=== PATIENT | male | born 1945 | race Caucasian/White ===

== ENCOUNTER 2021-11-29 11:21 | Observation (INO) ==
[2021-11-29 11:46] LABS: ABS Eosinophils 0.1 10^3/ul (0-0.6); ABS Lymphocytes 0.3 10^3/ul (1.0-4.8); ABS Monocytes 0.4 10^3/ul (0-0.8); ABS Neutrophils 3.6 10^3/ul (1.5-7.7); Eosinophil % 2.7 %; Hematocrit 35 % (42-52); Hemoglobin 11.1 g/dL (14.0-18.0); Lymphocyte % 6.8 %; Mean Corpuscular HGB Conc 32 g/dL (31-36); Mean Corpuscular Hemoglobin 32 pg (27-31); Mean Corpuscular Volume 98 fL (80-94); Mean Platelet Volume 8.6 fL (7.4-10.4); Platelet Count 132 10^3/uL (150-450); Red Blood Count 3.51 10^6 /uL (4.18-5.48); Red Cell Distribution Width 16 % (10-15); White Blood Count 4.5 10^3/uL (3.5-10.8)
[2021-11-29 12:08] LABS: High Sens Troponin Baseline 11 pg/mL (<20)
[2021-11-29 12:25] LABS: ALT 18 U/L (7-52); AST 30 U/L (13-39); Albumin/Globulin Ratio 0.8 (1-3); Alcohol, S < 13 mg/dL (<13); Alkaline Phosphatase 108 U/L (35-149); Anion Gap 10 mmol/L (2-11); Blood Urea Nitrogen 24 mg/dL (6-24); CO2 Carbon Dioxide 26 mmol/L (22-32); Calcium 8.6 mg/dL (8.6-10.3); Chloride 101 mmol/L (101-111); Globulin 3.9 g/dL (2-4); Glucose 148 mg/dL (70-100); Magnesium 1.9 mg/dL (1.9-2.7); Potassium 4.4 mmol/L (3.5-5.0); Sodium 137 mmol/L (135-145); Total Protein 6.9 g/dL (6.4-8.9)
[2021-11-29 12:37] LABS: TSH Ultra Thyroid Stim Horm 2.01 mcIU/mL (0.34-5.60)
[2021-11-29 13:17] LABS: High Sensitivity Troponin 1 Hr 10 pg/mL (<20)
[2021-11-29] MEDS ORDERED: Iodixanol (CONTRAST) 320 MG/ML 100 ML SDV IV ONE (13:51)
[2021-11-29] MEDS ORDERED: hydrALAZINE 20 mg/ml 1 ML Vial IV IV SLOW PU ONE ×2 (14:56→16:50)
[2021-11-29] MEDS ORDERED: Albuterol HFA INHALER 8 gm MDI INH PRN (16:50)
[2021-11-29] MEDS ORDERED: Enoxaparin 40 MG/0.4 ML SYR SUBCUT SCH (17:00)
[2021-11-29] MEDS ORDERED: hydrALAZINE 20 mg/ml 1 ML Vial IV IV SLOW PU PRN (17:32)
[2021-11-29 18:18] LABS: Vitamin B12 > 1450 pg/mL (180-914)
[2021-11-29] MEDS ORDERED: Gadoteridol (CONTRAST) 279.3 MG/ML 10 ML IV ONE (20:09)
[2021-11-30 06:41] LABS: Hematocrit 32 % (42-52); Hemoglobin 10.7 g/dL (14.0-18.0); Mean Corpuscular HGB Conc 33 g/dL (31-36); Mean Corpuscular Hemoglobin 32 pg (27-31); Mean Corpuscular Volume 97 fL (80-94); Mean Platelet Volume 8.7 fL (7.4-10.4); Platelet Count 131 10^3/uL (150-450); Red Cell Distribution Width 15 % (10-15); White Blood Count 4.8 10^3/uL (3.5-10.8)
[2021-11-30 07:16] LABS: Calcium 8.6 mg/dL (8.6-10.3); Magnesium 1.9 mg/dL (1.9-2.7); Potassium 4.5 mmol/L (3.5-5.0); eGFR CKD-EPI 61.7 (>60)
[2021-11-30] MEDS ORDERED: Aspirin EC 81 mg TAB.EC (enteric coated) PO SCH (09:00)
[2021-11-30 12:00] LABS: Ferritin 67.5 ng/mL (24-336)
[2021-11-30 16:56] VITALS: BP 130/62
== END 2021-11-30 17:35 | disposition home or self-care (01) ==
LOC: ED 11:21 → EDHOLD 11:21 → SUATTDRO 16:46 → MEDTELE 19:57
PROVIDERS: ADMIT Internal Medicine; ATTEND Hospitalist